=== PATIENT | male | born 1960 | race Caucasian/White ===

== ENCOUNTER 2022-11-01 08:41 | Day surgery (SDC) | payer OTHER ==
[~2022-11-01] VITALS: Ht 170.2 cm; Wt 91.6 kg
[2022-11-01] MEDS ORDERED: PLAVIX 75MG TAB75 MG PO (09:37)
[2022-11-01] MEDS ORDERED: ELIQUIS 5MG PO (09:38)
[2022-11-01] MEDS ORDERED: LIPITOR20 MG PO (09:38)
[2022-11-01] MEDS ORDERED: COZAAR 25MG25 MG/TAB PO (09:39)
[2022-11-01 10:45] VITALS: BP 112/67; PULSE 80; TEMP 97.5
[2022-11-01 10:54] VITALS: BP 1200/97; PULSE 86; TEMP 97.5
[2022-11-01 11:09] VITALS: BP 115/78; PULSE 84
[2022-11-01 11:24] VITALS: BP 108/80; PULSE 72
--- NOTE | 2022-11-01 11:30 | NUR ---
1054 RETURNS TO ROOM 1 PER CART. AWAKE, ALERT. AMBULATES TO RECLINER WITH STANDBY ASSIST. RESP UNLABORED. DENIES NAUSEA OR ABD PAIN. VITAL SIGNS OBTAINED. CALL LIGHT AT SIDE. BROTHER IN ROOM. 1105 DISCHARGE INSTRUCTIONS REVIEWED. PATIENT VERBALIZES UNDERSTANDING. COPY PROVIDED IN DISCHARGE FOLDER 1110 TOLERATES PO SODA AND MUFFIN WITHOUT NAUSEA 1112 DR. KHAN HERE TO VISIT WITH PATIENT. 1122 DRESSES SELF
== END 2022-11-01 11:30 | disposition home or self-care (01) ==
LOC: SDCO 08:41
DX: Z12.11 Encounter for screening for malignant neoplasm of colon (principal); D12.5 Benign neoplasm of sigmoid colon; D12.8 Benign neoplasm of rectum; Z87.891 Personal history of nicotine dependence
CPT/HCPCS: J2704; J7120

== ENCOUNTER → 2023-09-03 | Outpatient (CLI) | payer OTHER ==
[~2023-09-03] MED LIST: COZAAR 25MG25 MG/TAB PO; ELIQUIS 5MG PO; LIPITOR20 MG PO; PLAVIX 75MG TAB75 MG PO
[2023-09-03 09:13] LABS: HEMATOCRIT 48.7 % (42.0-52.0); HEMOGLOBIN 16.1 g/dl (13.5-18.0); MEAN CELL VOLUME 87 fl (80.0-100.0); MEAN CORPUSCULAR HEMOGLOBIN 29 pg (27-31); MEAN CORPUSCULAR HGB CONC 33 g/dl (33.0-37.0); MEAN PLATELET VOLUME 9.9 fl (7.4-10.4); PLATELET COUNT 255 K/mm3 (130-400); RED BLOOD COUNT 5.58 M/mm3 (4.20-5.60)
[2023-09-03 09:28] LABS: CALCIUM 9.5 mg/dL (8.4-10.2); CREATININE, serum 1.06 mg/dL (0.72-1.25); POTASSIUM 4.2 mmol/L (3.5-4.5)
== END ==
LOC: COL.LAB 08:43
PROVIDERS: Nurse Practitioner Family
DX: I73.9 Peripheral vascular disease, unspecified (principal)